=== PATIENT | female | born 1950 | race Caucasian/White ===

== ENCOUNTER 2016-10-17 05:47 | Inpatient (IN) | payer OTHER, MEDICARE ==
--- NOTE | 2016-10-09 10:38 | GHP ---
[f rep st] PREOP HISTORY AND PHYSICAL DATE OF ADMISSION: She will be an a.m. admission for surgery on Monday, October 17, 2016. PROBLEM: Left knee arthritis. HISTORY OF PRESENT ILLNESS: The patient is a 66-year-old woman admitted for a left total knee arthroplasty. She has had severe pain in her left knee for about 3 months. It started while she was putting baby seat in the back seat of her car. She has been tried on meloxicam and Tylenol. Her pain is on the medial side of the knee. She had a series of Supartz injections without much benefit. She has severe degenerative arthritis in her left knee, which is very symptomatic and limiting. She will undergo a left total knee arthroplasty. She had a right total knee arthroplasty done in [place] about 8 years ago with a good result. PAST MEDICAL HISTORY: She is on metformin for prediabetes. She is also treated with citalopram for depression. No history of heart disease, stents, DVT, hepatitis, or sleep apnea. CURRENT MEDICATIONS: Metformin 500 mg per day. Citalopram daily. DRUG ALLERGIES: Demerol causes nausea. METAL ALLERGY: None. LATEX ALLERGY: None. SOCIAL HISTORY: The patient works for [employer]. She does not smoke cigarettes and occasionally drinks wine. She is . FAMILY HISTORY: Noncontributory. PHYSICAL EXAMINATION: VITAL SIGNS: Height 5 feet 8 inches. Weight 210 pounds. BMI 31.9. EYES: The conjunctivae and sclerae are clear. Pupils are round and reactive. MOUTH: Good oral hygiene. No loose teeth. CHEST: Clear. HEART: Regular rhythm. No murmurs. EXTREMITIES: Pertinent findings limited to her left knee. She has a large effusion. Neutral alignment. She lacks 5 degrees of full extension and flexes to 100 degrees. She is tender along the medial joint line. Her ligaments are stable. IMAGING: Her films show severe medial compartment degenerative arthritis. She is [id number]. She has varus alignment. She has moderate degenerative arthritis in the patellofemoral joint. IMPRESSION ON ADMISSION: 1. Left knee severe degenerative arthritis. She is prepared for a left total knee arthroplasty. 2. Eight years status post satisfactory right total knee arthroplasty. 3. Treatment for prediabetes. PLAN: She will undergo a left total knee arthroplasty. The surgery has been described to her including the risks, complications, expectations, and recovery time. All her questions have been answered, and she consents to surgery. I have stressed the importance of postoperative physical therapy. I have advised her that with bilateral procedures there can be mild [id number] differences in the recovery and in the final result. She will go directly to outpatient physical therapy. Copy requested to: Dr. Bing Borden [place], [place] /[id number]/MODL MTDD
[2016-10-17] MEDS ORDERED: DEXAMETHASONE 4 MG/ML VIAL IVP ONE (05:59)
[2016-10-17] MEDS ORDERED: FAMOTIDINE 20 MG TAB PO ONE (05:59)
[2016-10-17] MEDS ORDERED: ceFAZolin 2 GM/DEXTROSE 100 ML IV ONE (05:59)
[2016-10-17] MEDS ORDERED: ACETAMINOPHEN 325 MG TAB PO ONE (05:59)
[2016-10-17] MEDS ORDERED: ROPIVACAINE 0.2% 80 MG, EPINEPHrine 0.2 MG, KETOROLAC TROMETHAMINE 30 MG in BAG 0 ML IU ONE (06:00)
[2016-10-17] MEDS ORDERED: TRANEXAMIC ACID 1,000 MG in NS 100 ML IV ONE (06:00)
[2016-10-17] MEDS ORDERED: POVIDONE-IODINE 20 ML in SODIUM CL IRRIG SOLUTION 500 ML IRR ONE (06:00)
[2016-10-17] MEDS ORDERED: LIDOCAINE 1% 2 ML INJ ONE (06:20)
[2016-10-17] MEDS ORDERED: DEXAMETHASONE 4 MG/ML VIAL ONE ×3 (06:35→07:51)
[2016-10-17] MEDS ORDERED: VANCOMYCIN 1 GM VIAL ONE (06:42)
[2016-10-17] MEDS ORDERED: ceFAZolin 1 GM/5 ML SYR ONE (06:42)
[2016-10-17] MEDS ORDERED: fentaNYL 100 MCG/2 ML INJ ONE (06:57)
[2016-10-17] MEDS ORDERED: LIDOCAINE 2% 5 ML SDV ONE (06:58)
[2016-10-17] MEDS ORDERED: PROPOFOL/EMULSION 500 MG/50 ML BOTTLE IV ONE ×2 (06:58→08:29)
[2016-10-17] MEDS ORDERED: ROPIVACAINE HCL 150 MG/30 ML INJ ONE (06:58)
--- NOTE | 2016-10-17 07:03 | PDHPUP ---
History & Physical Update H&P update statement: This history and physical update is based on an assessment of the patient which was completed after admission or registration (within 24 hours), but prior to the surgery/procedure. H&P update: H&P reviewed & patient examined, no change in patient's condition since H&P completed
--- NOTE | 2016-10-17 07:15 | PDANEPAE ---
ANE History of Present Illness Patient presents for LTKA ANE Past Medical History - Cardiovascular History Hx Hypertension: No Hx Arrhythmias: No Hx Chest Pain: No Hx Coronary Artery / Peripheral Vascular Disease: No Hx CHF / Valvular Disease: No Hx Palpitations: No - Pulmonary History Hx COPD: No Hx Asthma/Reactive Airway Disease: Yes Hx Recent Upper Respiratory Infection: No Hx Oxygen in Use at Home: No Hx Sleep Apnea: No Sleep Apnea Screening Result - Last Documented: Negative Pulmonary History Comment: childhood asthma- only uses Albuterol with URI. - Neurologic History Hx Cerebrovascular Accident: No Hx Seizures: No Hx Dementia: No Neurologic History Comment: hx of viral meningitis - Endocrine History Hx Diabetes: No Endocrine History Comment: on Metformin-Hgb A1c is now normal. - Renal History Hx Renal Disorders: No - Liver History Hx Hepatic Disorders: No - Neurological & Psychiatric Hx Hx Neurological and Psychiatric Disorders: No Neurological / Psychiatric History Comment: on Celexa to cope w/family issues - Cancer History Hx Cancer: No - Congenital Disorder History Hx Congenital Disorders: No - GI History Hx Gastrointestinal Disorders: No - Other Health History Other Health History: OA L knee - Chronic Pain History Chronic Pain: Yes (L knee) - Surgical History Prior Surgeries: R total knee 2008. hysterectomy appro 1976. open kasia age 23. Tonsillectomy age 14 ANE Review of Systems - Exercise capacity Exercise capacity: limited by disability METS (RN): 4 METS ANE Patient History - Allergies Allergies/Adverse Reactions: meperidine [From Demerol] Allergy (Verified 09/26/16 10:12) Vomiting - Home Medications Home medications: home medication list seen and reviewed Home Medications: Acetaminophen [Tylenol ES 500 mg (*)] 500 mg PO DAILY PRN 09/21/16 [Last Taken 10/16/16] Cholecalciferol Vit D3 [Vitamin D3 2000 units tab (OTC)] 2,000 units PO DAILY [Last Taken 10/03/16] Citalopram [CeleXA] 20 mg PO DAILY 09/21/16 [Last Taken 10/16/16 20:00] Naproxen Sod/Diphenhydramine [Aleve Pm Caplet] 1 each PO HS PRN 09/21/16 [Last Taken 10/10/16] metFORMIN HCL [Glucophage 500 mg (*)] 500 mg PO DAILY 09/21/16 [Last Taken 10/15 18:00] - NPO status NPO Status: no food or drink >8 hours NPO Since - Liquids (Date): 10/16/16 NPO Since - Liquids (Time): 18:00 NPO Since - Solids (Date): 10/16/16 NPO Since - Solids (Time): 18:00 - Anes Hx Anes Hx: no prior problems - Smoking Hx Smoking Status: Never smoked ANE Labs/Vital Signs - Vital Signs Blood Pressure: 138/77 Heart Rate: 60 Respiratory Rate: 16 O2 Sat (%): 93 Height: 172.72 cm Weight: 95.254 kg ANE Physical Exam - Airway Neck exam: FROM Mallampati Score: Class 2 - Pulmonary Pulmonary: no respiratory distress - Cardiovascular Cardiovascular: regular rate and rhythym - ASA Status ASA Status: II ANE Anesthesia Plan Anesthesia Plan: spinal (rba discussed)
[2016-10-17] MEDS ORDERED: ONDANSETRON 4 MG/2 ML VIAL ONE (07:51)
[2016-10-17] MEDS ORDERED: LR 500 ML IV PRN (08:24)
[2016-10-17] MEDS ORDERED: ONDANSETRON 4 MG/2 ML VIAL IVP PRN ×2 (08:24→09:30)
[2016-10-17] MEDS ORDERED: HYDROCODONE/APAP 5/325 TAB PO PRN (08:24)
[2016-10-17] MEDS ORDERED: OXYCODONE/APAP 5/325 TAB PO PRN (08:24)
[2016-10-17] MEDS ORDERED: fentaNYL 100 MCG/2 ML INJ IVP PRN (08:24)
[2016-10-17] MEDS ORDERED: NALOXONE HCL 0.4 MG/ML INJ IVP PRN (08:24)
--- NOTE | 2016-10-17 09:09 | POSTOPPROG ---
Post Op Note Date of Operation: 10/17/16 Surgeon: Alberto Alvarez Operating Room Rn: Brandon Moody / Mulugeta Valdovinos Anesthesiologist: Cathy Anesthesia: IV Sedation, Spinal Post-op Diagnosis: left knee severe degenerative arthritis Procedure: left total knee arthroplasty Inf/Abcess present in the surg proc area at time of surgery?: No EBL: 50-100 (adductor canal block)
[2016-10-17] MEDS ORDERED: DIPHENOXYLATE/ATROPINE LOMOTIL 1 TAB PO PRN (09:30)
[2016-10-17] MEDS ORDERED: LACTULOSE 20 GM/30 ML UDCUP PO PRN (09:30)
[2016-10-17] MEDS ORDERED: PHARMACY PAIN CONSULT 1 EA MISC PRN (09:30)
[2016-10-17] MEDS ORDERED: POLYETHYLENE GLYCOL 3350 17 GM PKT PO PRN (09:30)
[2016-10-17] MEDS ORDERED: traMADol 50 MG TAB PO PRN (09:30)
[2016-10-17] MEDS ORDERED: CYCLOBENZAPRINE 10 MG TAB PO PRN (09:30)
[2016-10-17] MEDS ORDERED: KETOROLAC 30 MG/1 ML SDV IVP PRN (09:30)
[2016-10-17] MEDS ORDERED: TEMAZEPAM 15 MG CAP PO PRN (09:30)
[2016-10-17] MEDS ORDERED: LR 1,000 ML IV SCH (09:30)
[2016-10-17] MEDS ORDERED: NS 500 ML IV PRN (09:30)
[2016-10-17] MEDS ORDERED: MAGNESIUM HYDROXIDE 30 ML UDCUP PO PRN (09:30)
[2016-10-17] MEDS ORDERED: diphenhydrAMINE 25 MG CAP PO PRN (09:30)
[2016-10-17] MEDS ORDERED: PROMETHAZINE HCL 25 MG SUPPR PR PRN (09:30)
[2016-10-17] MEDS ORDERED: BISACODYL 10 MG SUPP PR PRN (09:30)
[2016-10-17] MEDS ORDERED: ONDANSETRON DISINTEGRATING 4 MG TAB PO PRN (09:30)
[2016-10-17] MEDS ORDERED: PROMETHAZINE HCL 25 MG/ML INJ IVP PRN (09:30)
--- NOTE | 2016-10-17 09:37 | POSTANESTH ---
Post Anesthetic Evaluation Cardiovascular Status: Normal, Stable Respiratory Status: Normal, Stable Level of Consciousness/Mental Status: Can Participate in Eval Pain Control: Adequate, Prn Tx Ordered Nausea/Vomiting Control: Adequate, Prn Tx Ordered Complications Possibly Related to Anesthesia: None Noted
--- NOTE | 2016-10-17 11:42 | GOP ---
[f rep st] OPERATIVE REPORT DATE OF OPERATION: 10/17/2016 SURGEON: Alberto Alvarez MD SAWMILL HAND: Brandon Moody and Mulugeta Valdovinos. ANESTHESIA: A combination of Marcaine, spinal, IV sedation and an adductor canal block. ANESTHESIOLOGIST: Randy Morgan M.D. PREOPERATIVE DIAGNOSIS: Left knee severe degenerative arthritis. POSTOPERATIVE DIAGNOSIS: Left knee severe degenerative arthritis. PROCEDURE PERFORMED: Left total knee arthroplasty, cemented, Goodson and Nephew Journey II, posterior stabilized. FINDINGS: ESTIMATED BLOOD LOSS: Following deflation of the tourniquet was about 100 mL. The sponge and needle count were correct on 2 occasions. The patient was awakened from anesthesia, transferred to her [facility] and taken to the PACU i n satisfactory condition. There were no recognized intraoperative complications. In the PACU, for additional postoperative pain control, Dr. Morgan performed an adductor canal block. Brandon Moody and Mulugeta Valdovinos acted as surgical assistants. Their assistance was a medical neces sity to safely complete the procedure. DESCRIPTION OF PROCEDURE: The patient was given 2 g of preoperative IV Ancef within 60 minutes of s urgery. She also received IV tranexamic acid at a dose of 10 mg/kg. She was placed on the operatin g room table and given spinal anesthesia with Marcaine by Dr. Morgan. She was then placed supine and given IV sedation. A Mccabe catheter was not used. She wore a YOLY stocking and SCD on the nonopera tive leg. Her left lower extremity was prepped with ChloraPrep from the upper thigh tourniquet to t he tips of the toes. It was draped free using sterile sheets, stockinette, and Ioban plastic adhesi ve drape. The lower leg was wrapped with compressive Coban. The leg was exsanguinated with elevati on and a 6-inch compressive wrap, and the pneumatic tourniquet was inflated to 300 mmHg. She had a bulky thigh, necessitating a little higher tourniquet pressure. The [employer] time- out was performed to verify the correct patient identity and the correct surgical side and site. [facility] time-out was also performed. The Accelaloxayo leg holding device was sterilely attached to the operating room table and used throughout the procedure to help position the knee. A straight midline incision was made centered on the patella. Subcutaneous tissues were sharply div ided and hemostasis was obtained using electrocautery. A medial subcutaneous flap was developed and the capsule and synovium were opened in a medial parapatellar fashion. Extensive degenerative tripp ges were present, particularly in the medial compartment and in the patellofemoral joint. The media l capsule and periosteum were elevated off the rim and medial tibial plateau all the way around to t he posteromedial corner. Her medial collateral ligament was released enough to balance the medial s deann of the knee. In order to improve exposure, her patella was prepared first. The original thickness of the patella was measured. Peripheral osteophytes were removed. I cut a f lat surface on the back of the patella. She was sized for a 41 mm resurfacing component. I removed enough bone from the patella such that the remaining bone plus the thickness of the patellar compon ent recreated the original thickness of the patella. The composite thickness of the patella was 23 mm. The intramedullary alignment guide system was used to set up the distal femoral cut. The distal fem ur was cut in 6 degrees of valgus. Because of a preoperative flexion contracture, I made a +2 mm cu t on the distal femur. The sizing jig was used to determine proper femoral sizing. She was a true size 6 without a shift. The 5 in 1 cutting block was applied, and the anterior and posterior condyl ar cuts and chamfer cuts were made. The final jig was used to remove the central portion of the dis solomon femur to accommodate the posterior stabilized femoral component. I was careful to determine pro per rotation by referencing off Whitesides line. Each cut was checked for accuracy before and after it was made. The femur was sized for a size 6 posterior stabilized component. The trial component was tapped securely into place and was a good fit. Next, the tibia was prepared. The proximal tibial cut was made using the extramedullary alignment g uide system. The cut was made in a few degrees of posterior slope. I was careful to achieve proper varus and valgus alignment and proper rotation. The posterior compartment was cleared of meniscal remnants. Osteophytes were removed from the back of the femoral condyles. I checked the flexion an d extension gaps, and they were equal, balanced and rectangular. The tibia was sized for a size 5 component. With the trial components in place, I selected a 10 mm polyethylene posterior stabilized tibial insert. The knee came to full extension and flexed to abou t 115 or 120 degrees. The bulk of her leg prevented further flexion. There was no overstuffing in flexion. The collateral ligaments were stable and balanced in 90 degrees of flexion and full extens ion. The trial patellar button was applied, and tracking was checked. Tracking was excellent. With out any digital pressure. 40 mL of a joint anesthetic cocktail was injected into the posterior caps ule, the periarticular structures, the quadriceps muscle and tendon areas, and the subcutaneous tiss ues along the skin edges. A second dose of IV tranexamic acid was given at a dose of 10 mg/kg. The surfaces were prepared for cementing. They were carefully cleaned with the pulsating lavage irr igation and thoroughly dried. The CarboJet device was used to blow dry the cancellous surfaces. A double batch of high viscosity methylmethacrylate cement with 2 g of powdered vancomycin added was m ixed. While it was still in a semi liquid state, all 3 components were cemented in place. Excess c ement was removed before it hardened. The 10 mm trial tibial insert was retried and was the proper thickness. The actual component was inserted and locked into place. The knee was thoroughly irrigated one final time with a dilute Betadine solution. The tourniquet wa s deflated and the total tourniquet time was 53 minutes. The vastus medialis portion of the extenso r mechanism was repaired with several interrupted upecil-zl-augzl #2 FiberWire sutures. The capsule and synovium were closed first with multiple interrupted ivhlxm-tp-[id number] 0 PDS sutures followed by a running #2 barbed Ethicon Stratafix PDO suture. The subcutaneous tissues were closed with a runni ng 0 barbed Ethicon Stratafix Monoderm suture. The skin was closed with a running 3-0 barbed Ethico n Stratafix Monoderm subcuticular suture. The skin was sealed with half-inch Steri-Strips. The wou nd was covered with Xeroform gauze and flat 4x4s, and the knee was wrapped with Kerlix and a 6-inch compressive wrap. A long-leg YOLY stocking and SCD were applied followed by the cooling device. The patient wore a stocking and SCD on the opposite leg during the procedure. I used a size 6 cemented Goodson and Nephew Oxinium posterior stabilized femoral component, size 5 jakub ented tibial base plate, a 10 mm posterior stabilized tibial insert and a 41 mm cemented round all p olyethylene resurfacing patellar component. Copy requested to: MD Domi Stauffer [place] /[id number]/MODL
[2016-10-17] MEDS: ACETAMINOPHEN 325 MG TAB PO SCH ×3 (13:02→22:50)
[2016-10-17] MEDS: oxyCODONE IR 5 MG TAB PO PRN ×3 (13:02→22:51)
[2016-10-17] MEDS: ceFAZolin 2 GM/DEXTROSE 100 ML IV SCH ×2 (14:17→22:55)
[2016-10-17] MEDS: SENNOSIDES/DOCUSATE SODIUM TAB PO SCH (19:48)
[2016-10-17] MEDS: ASPIRIN 325 MG TAB PO SCH (19:49)
[2016-10-17] MEDS: FAMOTIDINE 20 MG TAB PO SCH (19:49)
[2016-10-18] MEDS: oxyCODONE IR 5 MG TAB PO PRN ×3 (04:49→11:32)
[2016-10-18] MEDS: ACETAMINOPHEN 325 MG TAB PO SCH ×2 (04:57→11:32)
[2016-10-18 05:13] LABS: HEMATOCRIT 31.5 % (38.0-47.0); HEMOGLOBIN 10.3 g/dL (12.6-16.3)
[2016-10-18 07:39] VITALS: BP 120/59; PULSE 55; RESP 12; TEMP 98.9; O2SAT 93
[2016-10-18] MEDS ORDERED: metFORMIN HCL 500 MG TAB PO SCH (09:00)
[2016-10-18] MEDS ORDERED: FERROUS SULFATE 140 MG TAB.ER PO SCH (09:00)
[2016-10-18] MEDS ORDERED: CITALOPRAM 20 MG TAB PO SCH (09:00)
[2016-10-18] MEDS: SENNOSIDES/DOCUSATE SODIUM TAB PO SCH (09:09)
[2016-10-18] MEDS: FAMOTIDINE 20 MG TAB PO SCH (09:10)
[2016-10-18] MEDS: ASPIRIN 325 MG TAB PO SCH (09:10)
--- NOTE | 2016-10-18 09:12 | SOAPPROG ---
SOAP Progress Note Assessment/Plan: Assessment: Afebrile. Awake and alert. Moderate pain. Her dressing is dry. She has full knee extension. Postop films look excellent. H&H is good. She has been walking in the [place]. Plan: Continue physical therapy today. Discharged later today. 10/18/16 09:11 Objective: Vital Signs Temp Pulse Resp BP Pulse Ox 37.2 C 55 L 12 120/59 L 93 10/18/16 07:37 10/18/16 07:37 10/18/16 07:37 10/18/16 07:37 10/18/16 07:37 Laboratory Results 10/18/16 04:56 10/17/16 10/18/16 10/19/16 05:59 05:59 05:59 Intake Total 3788 Output Total 1150 Balance 2638 ICD10 Worksheet Patient Problems: Problems Problem Status Onset Osteoarthritis of left knee Acute
--- NOTE | 2016-10-18 11:21 | GDS ---
[f rep st] DISCHARGE SUMMARY POSTOPERATIVE DIAGNOSIS: Left knee severe degenerative arthritis. DISCHARGE DIAGNOSIS: Left knee severe degenerative arthritis. OPERATIONS PERFORMED: October 17, 2016, left total knee arthroplasty. POSTOPERATIVE COMPLICATIONS: None. CONDITION ON DISCHARGE: Improved. DESCRIPTION OF HOSPITAL COURSE: The patient was admitted to the hospital on the morning of surgery. The same day, under a combination of Marcaine, spinal, anesthesia and IV sedation, and adductor canal block, she underwent a left total knee arthroplasty. Postoperatively, she was treated with multimodal DVT prophylaxis, including aspirin. On the first postoperative day, her hemoglobin and hematocrit were 10.3 and 31.5. She did not require any transfused blood. She was seen by physical therapy and made very good progress with ambulation, knee range of motion, and stairs. By the time of discharge, she was afebrile and was independent, walking with a walker. DISPOSITION: The patient discharged to her home. She will go to outpatient physical therapy. She may progress to full weightbearing on the left as tolerated. Use YOLY stockings for 1 week. Continue aspirin 325 mg p.o. daily for 21 days. She has prescriptions for oxycodone and tramadol for pain control. I will see her back in the office on October 30, 2016. If there are any problems, she is to call me at the office. Copy requested to: Bing Rodriguez [place] /[id number]/MODL MTDD
== END 2016-10-18 11:58 | disposition home health service (06) | DRG 470 ==
LOC: F3N 05:47
PROVIDERS: ADMIT Orthopaedic Surgery; ATTEND Orthopaedic Surgery
PROC: 0SRD0J9 Replacement of Left Knee Joint with Synthetic Substitute, Cemented, Open Approach (ICD-10-PCS; principal; 2016-10-17 07:15)
DX: M17.12 Unilateral primary osteoarthritis, left knee (principal); R73.03 Prediabetes; F32.9 Major depressive disorder, single episode, unspecified; Z79.84 Long term (current) use of oral hypoglycemic drugs; Z96.651 Presence of right artificial knee joint
CPT/HCPCS: 97116-GP; 97161-GP; 97165-GO; 97530-GP; C1713; G8978-GP-CJ; G8979-GP-CI; G8987-GO-CI; G8988-GO-CI; G8989-GO-CI; J0171; J0690; J1100; J1885; J2405; J2704; J2795; J3010; J3370